=== PATIENT | female | born 1965 | race Caucasian/White ===

== ENCOUNTER 2021-07-20 07:24 | Day surgery (SDC) | payer BC ==
[2021-07-12 16:37] LABS: BASOPHILS % (AUTO) 0.6 % (0.0-5.0); EOSINOPHILS % (AUTO) 3.3 % (0.0-8.0); HEMATOCRIT 40.2 % (36-48); LYMPHOCYTES % (AUTO) 40.2 % (21.0-51.0); MEAN CORPUSCULAR HEMOGLOBIN 29.9 pg (27.0-33.0); MEAN CORPUSCULAR HGB CONC 32.8 g/dL (32.0-36.0); MONOCYTES % (AUTO) 6.6 % (3.0-13.0); NEUTROPHILS % (AUTO) 48.9 % (40.0-77.0); PLATELET COUNT (AUTO) 205 K/uL (130-400); RED BLOOD CELL COUNT(AUTO) 4.42 MIL/uL (4.00-5.50); RED CELL DISTRIBUTION WIDTH 13.2 % (11.0-15.5); WHITE BLOOD COUNT (AUTO) 8.2 K/uL (4.8-10.8)
[2021-07-19 09:11] VITALS: BP 145/76
[~2021-07-20] VITALS: Ht 152.4 cm; Wt 63.6 kg
[2021-07-20] VITALS (25 sets, daily range): BP systolic 111–139; BP diastolic 52–77
[~2021-07-20 07:24] MED LIST: ACETAMINOPHEN 500 MG TABLET PO SCH; CEFAZOLIN SODIUM 1 GM VIAL IVP SCH; CELECOXIB 200 MG CAP PO SCH; METRONIDAZOLE 500MG/100ML BAG 100 ML IVPB SCH; PHENAZOPYRIDINE HCL 200 MG TABLET PO SCH
[2021-07-20] MEDS ORDERED: LIDOCAINE PF 100MG/5ML (2%) SYRINGE 5ML ONE (09:21)
[2021-07-20] MEDS ORDERED: ONDANSETRON 4MG INJ ONE ×2 (09:21→13:38)
[2021-07-20] MEDS ORDERED: SUCCINYLCHOLINE 200MG/10ML SYR ONE (09:21)
[2021-07-20] MEDS ORDERED: GLYCOPYRROLATE 1 MG/5 ML SYRINGE ONE (09:21)
[2021-07-20] MEDS ORDERED: DEXAMETHASONE SOD PHOSPHATE 10MG/ML 1ML VIAL ONE (09:21)
[2021-07-20] MEDS ORDERED: PROPOFOL 10 MG/ML 20ML VIAL IV ONE (09:22)
[2021-07-20] MEDS ORDERED: ROCURONIUM 10MG/1ML SYR 10 MG/ML ML ONE (09:22)
[2021-07-20] MEDS ORDERED: MIDAZOLAM HCL 1 MG/ML 2ML VIAL ONE (09:22)
[2021-07-20] MEDS ORDERED: FENTANYL CITRATE PF 50 MCG/1 ML 5ML AMP IV ONE (09:25)
[2021-07-20] MEDS ORDERED: FAMOTIDINE 20MG VIAL IV ONE (10:36)
[2021-07-20] MEDS ORDERED: CEFAZOLIN SODIUM 2 GM VIAL IV ONE (10:42)
[2021-07-20] MEDS ORDERED: MEPERIDINE-PF 25 MG/ML SYG ONE (12:15)
[2021-07-20] MEDS ORDERED: MORPHINE 10MG VIAL ONE (13:38)
== END 2021-07-20 17:23 | disposition home or self-care (01) ==
LOC: DAH 07:24
PROVIDERS: ATTEND Obstetrics & Gynecology
DX: N92.0 Excessive and frequent menstruation with regular cycle (principal); Z20.822 Contact with and (suspected) exposure to COVID-19; N72 Inflammatory disease of cervix uteri; N80.0 Endometriosis of uterus; D25.9 Leiomyoma of uterus, unspecified; N83.8 Other noninflammatory disorders of ovary, fallopian tube and broad ligament; Z90.89 Acquired absence of other organs; Z98.890 Other specified postprocedural states; Z79.899 Other long term (current) drug therapy; Z82.49 Family history of ischemic heart disease and other diseases of the circulatory system; Z83.42 Family history of familial hypercholesterolemia; Z80.8 Family history of malignant neoplasm of other organs or systems; Z83.49 Family history of other endocrine, nutritional and metabolic diseases; Z82.5 Family history of asthma and other chronic lower respiratory diseases; Z80.1 Family history of malignant neoplasm of trachea, bronchus and lung; Z87.891 Personal history of nicotine dependence
CPT/HCPCS: 36415 ×2; 58262; 84703; 85025; 86850 ×2; 86900 ×2; 86901 ×2; 87635; A4215; A4216; A4221; A4222; A4223 ×2; A4344; A4351; A4663; A4930; A6260; C9803; J0330; J0690 ×2; J1100; J2001; J2175; J2250; J2270; J2405 ×2; J2704; J3010; J3490 ×3; J7030